=== PATIENT | male | born 1935 | race Caucasian/White ===

== ENCOUNTER 2020-06-22 14:30 | Inpatient (IN) ==
[2020-06-22 16:29] LABS: ABS Basophils 0.1 10^3/ul (0-0.2); ABS Eosinophils 0.1 10^3/ul (0-0.6); ABS Lymphocytes 0.7 10^3/ul (1.0-4.8); ABS Monocytes 0.4 10^3/ul (0-0.8); ABS Neutrophils 4.3 10^3/ul (1.5-7.7); Eosinophil % 1.2 %; Hematocrit 33 % (42-52); Hemoglobin 10.6 g/dL (14.0-18.0); Lymphocyte % 11.8 %; Mean Corpuscular HGB Conc 33 g/dL (31-36); Mean Corpuscular Hemoglobin 30 pg (27-31); Mean Corpuscular Volume 91 fL (80-94); Platelet Count 229 10^3/uL (150-450); Red Blood Count 3.58 10^6 /uL (4.18-5.48); Red Cell Distribution Width 19 % (10-15); White Blood Count 5.5 10^3/uL (3.5-10.8)
[2020-06-22] MEDS ORDERED: Furosemide 40 mg/4 ml IV VIAL IV SLOW PU ONE ×2 (16:49→18:10)
[2020-06-22 17:01] LABS: Troponin I 0.16 ng/mL (<0.03)
[2020-06-22 17:14] LABS: ALT 10 U/L (7-52); AST 11 U/L (13-39); Albumin 4.1 g/dL (3.2-5.2); Albumin/Globulin Ratio 1.7 (1-3); Alkaline Phosphatase 49 U/L (34-104); Anion Gap 10 mmol/L (2-11); BUN/Creatinine Ratio 12.9 (8-20); Blood Urea Nitrogen 54 mg/dL (6-24); CO2 Carbon Dioxide 24 mmol/L (22-32); Calcium 10.4 mg/dL (8.6-10.3); Chloride 108 mmol/L (101-111); EGFR African American 16.4 (>60); EGFR Non-African American 13.5 (>60); Globulin 2.4 g/dL (2-4); Glucose 135 mg/dL (70-100); Magnesium 2.3 mg/dL (1.9-2.7); Potassium 4.1 mmol/L (3.5-5.0); Sodium 142 mmol/L (135-145); Total Protein 6.5 g/dL (6.4-8.9)
[2020-06-22 17:35] LABS: Urine Appearance Cloudy; Urine Bilirubin Negative (Negative); Urine Blood Negative (Negative); Urine Color Yellow; Urine Glucose 1+(50 mg/dL) (Negative); Urine Ketones Negative (Negative); Urine Nitrite Negative (Negative); Urine Protein 2+(100 mg/dL) (Negative); Urine Specific Gravity 1.014 (1.010-1.030); Urine Urobilinogen Negative (Negative)
[2020-06-22 17:47] LABS: Urine Bacteria Absent (Absent); Urine Red Blood Cell Absent (Absent); Urine Squamous Epithelial Cell Present (Absent); Urine White Blood Cell Trace(0-5/hpf) (Absent)
[2020-06-22] MEDS ORDERED: Al Hydrox/Mg Hydrox/Simet LIQ 30 ML UDC PO PRN (18:01)
[2020-06-22 18:07] LABS: TSH Ultra Thyroid Stim Horm 6.47 mcIU/mL (0.34-5.60)
[2020-06-22] MEDS ORDERED: Dextrose 50% Syringe 50 ml 25 GM/50 ML SYRINGE IV PUSH PRN (18:15)
[2020-06-22 18:23] LABS: Activated Partial Thrombo Time 42.8 seconds (26.0-38.0); INR 3.64 (0.82-1.09)
[2020-06-22] MEDS ORDERED: Phytonadione Oral Solution 5 MG/25 ML UDC PO ONE (19:58)
[2020-06-22 20:33] LABS: Troponin I 0.16 ng/mL (<0.03)
[2020-06-23 00:36] LABS: BUN/Creatinine Ratio 12.3 (8-20); EGFR African American 15.6 (>60); EGFR Non-African American 12.9 (>60); Magnesium 2.2 mg/dL (1.9-2.7); Potassium 3.8 mmol/L (3.5-5.0)
[2020-06-23 00:43] LABS: INR 4.46 (0.82-1.09)
[2020-06-23 00:57] LABS: Urine Appearance Turbid; Urine Bilirubin Negative (Negative); Urine Blood 3+ (Negative); Urine Color Yellow; Urine Glucose 1+(50 mg/dL) (Negative); Urine Ketones Trace (Negative); Urine Nitrite Negative (Negative); Urine Protein 3+(>=500 mg/dL) (Negative); Urine Specific Gravity 1.013 (1.010-1.030); Urine Urobilinogen Negative (Negative)
[2020-06-23 00:58] LABS: Hematocrit 29 % (42-52); Hemoglobin 9.5 g/dL (14.0-18.0)
[2020-06-23] MEDS ORDERED: Furosemide 100 mg/10 ml IV 100 MG in NS 0.9% 100 ml BAG 90 ML IV SCH (01:00)
[2020-06-23 01:07] LABS: Urine Bacteria Absent (Absent); Urine Red Blood Cell Absent (Absent); Urine White Blood Cell Absent (Absent)
[2020-06-23] MEDS ORDERED: Phytonadione Oral Solution 5 MG/25 ML UDC PO ONE (01:10)
[2020-06-23] MEDS: Nystatin TOP POWDER 15 GM BTL TOPICAL SCH ×3 (03:13→21:08)
[2020-06-23 04:31] LABS: ABS Basophils 0.1 10^3/ul (0-0.2); ABS Eosinophils 0.1 10^3/ul (0-0.6); ABS Lymphocytes 0.6 10^3/ul (1.0-4.8); ABS Monocytes 0.5 10^3/ul (0-0.8); ABS Neutrophils 4.6 10^3/ul (1.5-7.7); Eosinophil % 1.6 %; Hematocrit 27 % (42-52); Hemoglobin 8.7 g/dL (14.0-18.0); Lymphocyte % 9.9 %; Mean Corpuscular HGB Conc 32 g/dL (31-36); Mean Corpuscular Hemoglobin 29 pg (27-31); Mean Corpuscular Volume 90 fL (80-94); Mean Platelet Volume 8.2 fL (7.4-10.4); Platelet Count 201 10^3/uL (150-450); Red Blood Count 2.99 10^6 /uL (4.18-5.48); Red Cell Distribution Width 19 % (10-15); White Blood Count 5.8 10^3/uL (3.5-10.8)
[2020-06-23 04:41] LABS: INR 4.68 (0.82-1.09)
[2020-06-23 04:44] LABS: Anion Gap 10 mmol/L (2-11); BUN/Creatinine Ratio 12.6 (8-20); Blood Urea Nitrogen 54 mg/dL (6-24); CO2 Carbon Dioxide 23 mmol/L (22-32); Chloride 110 mmol/L (101-111); EGFR African American 15.9 (>60); EGFR Non-African American 13.2 (>60); Glucose 98 mg/dL (70-100); Magnesium 2.1 mg/dL (1.9-2.7); Potassium 3.7 mmol/L (3.5-5.0); Sodium 143 mmol/L (135-145)
[2020-06-23] MEDS ORDERED: KCL 20 MEQ/100 ML IVPREMIX 20 MEQ/100 ML BAG IV ONE (04:47)
[2020-06-23] MEDS: Furosemide 100 mg/10 ml IV 100 MG in NS 0.9% 100 ml BAG 90 ML IV SCH ×2 (07:04→11:36)
[2020-06-23] MEDS ORDERED: Phytonadione IV (Adult) 5 MG in NS 0.9% 50 ML 50 ML IV ONE (07:35)
[2020-06-23 08:16] LABS: Troponin I 0.19 ng/mL (<0.03)
[2020-06-23 08:31] LABS: Troponin I 0.17 ng/mL (<0.03)
[2020-06-23] MEDS: PARICALCITOL 1 MCG PO SCH (10:07)
[2020-06-23] MEDS ORDERED: Prothrombin Complex Conc. DOSE = Units Factor IX (nine) IV SLOW PU ONE (12:00)
[2020-06-23] MEDS ORDERED: Lidocaine 2% JELLY 6 ML TOPICAL ONE (12:32)
[2020-06-23 13:25] LABS: Hepatitis B Surface Antigen Nonreactive (Nonreactive)
[2020-06-23 13:30] LABS: Hepatitis A Ab IgM Negative (Negative)
[2020-06-23 13:31] LABS: Hepatitis B Core IgM Nonreactive (Nonreactive)
[2020-06-23] MEDS ORDERED: Norepinephrine 16MCG/ML IVPRE 4,000 MCG/250 ML BAG IV ONE (13:32)
[2020-06-23 13:43] LABS: Hepatitis C Antibody Negative (Negative)
[2020-06-23] MEDS ORDERED: fentaNYL 100 mcg/2 ml 50 MCG/ML VIAL ONE (13:48)
[2020-06-23] MEDS ORDERED: Naloxone 0.4 mg VIAL 0.4 mg/ml 1 ml VIAL ONE (13:48)
[2020-06-23] MEDS ORDERED: Heparin 1,000 UNIT/ML 10 ml (10,000 UNITS) CATHLAB/DIALYSIS DIALYSIS ONE (15:00)
[2020-06-23 16:45] LABS: Hepatitis B Surface Antigen Nonreactive (Nonreactive)
[2020-06-23 17:03] LABS: Hepatitis B Surface Ab Not Immune (Immune); Hepatitis C Antibody Negative (Negative)
[2020-06-23] MEDS ORDERED: Norepinephrine 16MCG/ML IVPRE 4,000 MCG/250 ML BAG IV SCH (18:00)
[2020-06-24 03:46] LABS: INR 1.02 (0.82-1.09)
[2020-06-24 04:27] LABS: ABS Basophils 0.1 10^3/ul (0-0.2); ABS Eosinophils 0.1 10^3/ul (0-0.6); ABS Lymphocytes 0.6 10^3/ul (1.0-4.8); ABS Monocytes 0.6 10^3/ul (0-0.8); Hematocrit 25 % (42-52); Hemoglobin 8.1 g/dL (14.0-18.0); Lymphocyte % 8.2 %; Mean Corpuscular HGB Conc 32 g/dL (31-36); Mean Corpuscular Hemoglobin 29 pg (27-31); Mean Corpuscular Volume 91 fL (80-94); Mean Platelet Volume 9.1 fL (7.4-10.4); Nucleated Red Blood Cells % 0.1; Platelet Count 196 10^3/uL (150-450); Red Blood Count 2.77 10^6 /uL (4.18-5.48); Red Cell Distribution Width 19 % (10-15); White Blood Count 7.4 10^3/uL (3.5-10.8)
[2020-06-24 04:30] LABS: Calcium 9.5 mg/dL (8.6-10.3); Potassium 3.6 mmol/L (3.5-5.0)
[2020-06-24 04:36] LABS: BUN/Creatinine Ratio 11.9 (8-20); EGFR African American 19.5 (>60); EGFR Non-African American 16.1 (>60)
[2020-06-24] MEDS: PARICALCITOL 1 MCG PO SCH (08:39)
[2020-06-24] MEDS ORDERED: Influenza VAC *QUAD* 2020-21* 0.5 ML SYRINGE IM ONE (09:00)
[2020-06-24] MEDS ORDERED: Potassium Chlor 20 meq TAB.ER PO ONE (09:00)
[2020-06-24] MEDS: Nystatin TOP POWDER 15 GM BTL TOPICAL SCH (10:06)
[2020-06-24] MEDS ORDERED: Heparin 1,000 UNIT/ML 10 ml (10,000 UNITS) CATHLAB/DIALYSIS DIALYSIS ONE (15:30)
[2020-06-24 19:41] VITALS: BP 99/59
== END 2020-06-24 19:35 | disposition short-term general hospital (02) | DRG 291 ==
LOC: ED 14:30 → MEDTELE 18:01 → ICU 19:40
PROVIDERS: ADMIT Internal Medicine; ATTEND Internal Medicine

== ENCOUNTER 2020-07-08 13:31 | Inpatient (IN) ==
[2020-07-08] MEDS ORDERED: Senna TAB 8.6 mg TAB PO PRN (15:30)
[2020-07-08] MEDS ORDERED: Magnesium Hydroxide LIQ 30 ML UDC PO PRN (15:30)
[2020-07-08] MEDS ORDERED: Dextrose 50% Syringe 50 ml 25 GM/50 ML SYRINGE IV PUSH PRN (15:48)
[2020-07-08] MEDS: Warfarin DAILY REMINDER **NOTE FOLLOW UP SCH (17:44)
[2020-07-08] MEDS: Amoxicillin/Clavul 875/125 TAB (Augmentin 875 tab) PO SCH (20:24)
[2020-07-09 05:44] LABS: INR 1.07 (0.82-1.09)
[2020-07-09] MEDS ORDERED: PARICALCITOL 1 MCG PO SCH (09:00)
[2020-07-09] MEDS: Amoxicillin/Clavul 875/125 TAB (Augmentin 875 tab) PO SCH ×2 (09:11→20:04)
[2020-07-09] MEDS: SITAGLIPTIN 25 MG PO SCH (09:12)
[2020-07-09] MEDS: CMCS:OMEGA-3 FATTY ACID 1000 mg(NF) PO SCH (09:12)
[2020-07-09] MEDS: Trospium 20 mg TAB (NF) PO SCH (10:33)
[2020-07-09] MEDS: Warfarin DAILY REMINDER **NOTE FOLLOW UP SCH (18:35)
[2020-07-10 07:51] LABS: ABS Basophils 0.1 10^3/ul (0-0.2); ABS Eosinophils 0.4 10^3/ul (0-0.6); ABS Lymphocytes 0.7 10^3/ul (1.0-4.8); ABS Monocytes 0.5 10^3/ul (0-0.8); ABS Neutrophils 6.2 10^3/ul (1.5-7.7); Eosinophil % 4.8 %; Hematocrit 27 % (42-52); Lymphocyte % 8.7 %; Mean Corpuscular HGB Conc 34 g/dL (31-36); Mean Corpuscular Hemoglobin 31 pg (27-31); Mean Corpuscular Volume 91 fL (80-94); Mean Platelet Volume 7.7 fL (7.4-10.4); Platelet Count 243 10^3/uL (150-450); Red Blood Count 2.93 10^6 /uL (4.18-5.48); Red Cell Distribution Width 18 % (10-15); White Blood Count 7.8 10^3/uL (3.5-10.8)
[2020-07-10 08:11] LABS: Albumin 2.9 g/dL (3.2-5.2); Albumin/Globulin Ratio 1.1 (1-3); BUN/Creatinine Ratio 14.8 (8-20); EGFR African American 19.7 (>60); EGFR Non-African American 16.3 (>60); Globulin 2.7 g/dL (2-4); INR 1.03 (0.82-1.09); Potassium 4.4 mmol/L (3.5-5.0); Total Bilirubin 0.5 mg/dL (0.2-1.0); Total Protein 5.6 g/dL (6.4-8.9)
[2020-07-10] MEDS: Amoxicillin/Clavul 875/125 TAB (Augmentin 875 tab) PO SCH (11:09)
[2020-07-10] MEDS: Aspirin EC 81 mg TAB.EC (enteric coated) PO SCH (11:10)
[2020-07-10] MEDS: PARICALCITOL 2 MCG PO SCH (11:11)
[2020-07-10] MEDS: SITAGLIPTIN 25 MG PO SCH (11:11)
[2020-07-10] MEDS: CMCS:OMEGA-3 FATTY ACID 1000 mg(NF) PO SCH (11:11)
[2020-07-10] MEDS: Trospium 20 mg TAB (NF) PO SCH (11:11)
[2020-07-10] MEDS: Warfarin DAILY REMINDER **NOTE FOLLOW UP SCH (17:54)
[2020-07-10] MEDS: Amoxicillin/Clavul 500/125 TAB (Augmentin 500 mg tab) PO SCH (20:09)
[2020-07-11 08:13] LABS: INR 1.01 (0.82-1.09)
[2020-07-11] MEDS: Amoxicillin/Clavul 500/125 TAB (Augmentin 500 mg tab) PO SCH ×2 (09:32→21:05)
[2020-07-11] MEDS: Aspirin EC 81 mg TAB.EC (enteric coated) PO SCH (09:32)
[2020-07-11] MEDS: Sodium Bicarb 650 mg (ANTACID) TAB PO SCH ×2 (09:32→18:28)
[2020-07-11] MEDS: PARICALCITOL 2 MCG PO SCH (09:33)
[2020-07-11] MEDS: SITAGLIPTIN 25 MG PO SCH (09:33)
[2020-07-11] MEDS: CMCS:OMEGA-3 FATTY ACID 1000 mg(NF) PO SCH (09:33)
[2020-07-11] MEDS: Warfarin DAILY REMINDER **NOTE FOLLOW UP SCH (18:28)
[2020-07-12] MEDS ORDERED: Lidocaine 2% JELLY 6 ML TOPICAL PRN (09:51)
[2020-07-12] MEDS: Amoxicillin/Clavul 500/125 TAB (Augmentin 500 mg tab) PO SCH (10:12)
[2020-07-12] MEDS: Sodium Bicarb 650 mg (ANTACID) TAB PO SCH ×2 (10:12→17:32)
[2020-07-12] MEDS: Aspirin EC 81 mg TAB.EC (enteric coated) PO SCH (10:12)
[2020-07-12] MEDS: PARICALCITOL 2 MCG PO SCH (10:13)
[2020-07-12] MEDS: CMCS:OMEGA-3 FATTY ACID 1000 mg(NF) PO SCH (10:13)
[2020-07-12] MEDS: SITAGLIPTIN 25 MG PO SCH (10:13)
[2020-07-12] MEDS: Warfarin DAILY REMINDER **NOTE FOLLOW UP SCH (17:31)
[2020-07-13 05:51] LABS: Hematocrit 28 % (42-52); Hemoglobin 9.2 g/dL (14.0-18.0); Mean Corpuscular HGB Conc 33 g/dL (31-36); Mean Corpuscular Hemoglobin 31 pg (27-31); Mean Corpuscular Volume 94 fL (80-94); Mean Platelet Volume 7.8 fL (7.4-10.4); Platelet Count 266 10^3/uL (150-450); Red Blood Count 2.97 10^6 /uL (4.18-5.48); Red Cell Distribution Width 17 % (10-15); White Blood Count 7.9 10^3/uL (3.5-10.8)
[2020-07-13 06:00] LABS: INR 1.05 (0.82-1.09)
[2020-07-13 06:10] LABS: Albumin 3.2 g/dL (3.2-5.2); Albumin/Globulin Ratio 1.1 (1-3); BUN/Creatinine Ratio 14.2 (8-20); Calcium 10.2 mg/dL (8.6-10.3); EGFR African American 19.6 (>60); EGFR Non-African American 16.2 (>60); Globulin 2.9 g/dL (2-4); Phosphorus 4.2 mg/dL (2.5-5.0); Potassium 4.7 mmol/L (3.5-5.0); Total Bilirubin 0.5 mg/dL (0.2-1.0); Total Protein 6.1 g/dL (6.4-8.9)
[2020-07-13 06:33] LABS: % Iron Saturation 9 % (15-55); Iron 22 ug/dL (50-212); Total Iron Binding Capacity 253 mcg/dL (250-450); Transferrin 181 mg/dL (203-362); Unsaturated Iron Binding < 238 ug/dL
[2020-07-13 06:53] LABS: Ferritin 199.8 ng/mL (24-336)
[2020-07-13] MEDS: Aspirin EC 81 mg TAB.EC (enteric coated) PO SCH (08:32)
[2020-07-13] MEDS: CMCS:OMEGA-3 FATTY ACID 1000 mg(NF) PO SCH (08:35)
[2020-07-13] MEDS: PARICALCITOL 2 MCG PO SCH (08:35)
[2020-07-13] MEDS: SITAGLIPTIN 25 MG PO SCH (08:35)
[2020-07-13] MEDS: Sodium Bicarb 650 mg (ANTACID) TAB PO SCH ×2 (08:37→17:15)
[2020-07-13] MEDS: Warfarin DAILY REMINDER **NOTE FOLLOW UP SCH (17:16)
[2020-07-14] MEDS: Aspirin EC 81 mg TAB.EC (enteric coated) PO SCH (08:54)
[2020-07-14] MEDS: Sodium Bicarb 650 mg (ANTACID) TAB PO SCH ×2 (08:54→17:31)
[2020-07-14] MEDS: CMCS:OMEGA-3 FATTY ACID 1000 mg(NF) PO SCH (08:54)
[2020-07-14] MEDS: PARICALCITOL 2 MCG PO SCH (08:54)
[2020-07-14] MEDS: SITAGLIPTIN 25 MG PO SCH (08:55)
[2020-07-14] MEDS ORDERED: Lidocaine 2% JELLY 5 ML TUBE LIDO2GEL7 TOPICAL PRN (10:45)
[2020-07-14] MEDS: Warfarin DAILY REMINDER **NOTE FOLLOW UP SCH (17:46)
[2020-07-15] MEDS: Aspirin EC 81 mg TAB.EC (enteric coated) PO SCH (08:41)
[2020-07-15] MEDS: Sodium Bicarb 650 mg (ANTACID) TAB PO SCH ×2 (08:41→16:33)
[2020-07-15] MEDS: CMCS:OMEGA-3 FATTY ACID 1000 mg(NF) PO SCH (08:42)
[2020-07-15] MEDS: PARICALCITOL 2 MCG PO SCH (08:42)
[2020-07-15] MEDS: SITAGLIPTIN 25 MG PO SCH (08:44)
[2020-07-15 08:50] LABS: INR 1.12 (0.82-1.09)
[2020-07-15 09:02] LABS: BUN/Creatinine Ratio 12.9 (8-20); Calcium 10.3 mg/dL (8.6-10.3); EGFR African American 18.4 (>60); EGFR Non-African American 15.2 (>60); Potassium 4.8 mmol/L (3.5-5.0)
[2020-07-15] MEDS: Iron Sucrose 200 MG in NS 0.9% 100 ml BAG 100 ML IVPB SCH (11:21)
[2020-07-15] MEDS: Warfarin DAILY REMINDER **NOTE FOLLOW UP SCH (18:03)
[2020-07-16] MEDS: Sodium Bicarb 650 mg (ANTACID) TAB PO SCH ×2 (07:52→17:08)
[2020-07-16] MEDS ORDERED: Iron Sucrose 200 MG in NS 0.9% 100 ml BAG 100 ML IVPB SCH (09:00)
[2020-07-16] MEDS: PARICALCITOL 2 MCG PO SCH (09:37)
[2020-07-16] MEDS: Aspirin EC 81 mg TAB.EC (enteric coated) PO SCH (09:37)
[2020-07-16] MEDS: CMCS:OMEGA-3 FATTY ACID 1000 mg(NF) PO SCH (09:38)
[2020-07-16] MEDS: SITAGLIPTIN 25 MG PO SCH (09:38)
[2020-07-16] MEDS: Warfarin DAILY REMINDER **NOTE FOLLOW UP SCH (17:41)
[2020-07-16] MEDS: Lidocaine 2% JELLY 5 ML TUBE LIDO2GEL7 TOPICAL SCH (21:24)
[2020-07-17 05:40] LABS: INR 1.21 (0.82-1.09)
[2020-07-17 06:29] LABS: ABS Basophils 0.1 10^3/ul (0-0.2); ABS Eosinophils 0.1 10^3/ul (0-0.6); ABS Lymphocytes 0.5 10^3/ul (1.0-4.8); ABS Monocytes 0.6 10^3/ul (0-0.8); ABS Neutrophils 5.1 10^3/ul (1.5-7.7); Eosinophil % 1.8 %; Hematocrit 25 % (42-52); Hemoglobin 8.1 g/dL (14.0-18.0); Lymphocyte % 7.5 %; Mean Corpuscular HGB Conc 33 g/dL (31-36); Mean Corpuscular Hemoglobin 30 pg (27-31); Mean Corpuscular Volume 91 fL (80-94); Mean Platelet Volume 8.2 fL (7.4-10.4); Platelet Count 219 10^3/uL (150-450); Red Blood Count 2.69 10^6 /uL (4.18-5.48); Red Cell Distribution Width 17 % (10-15); White Blood Count 6.3 10^3/uL (3.5-10.8)
[2020-07-17] MEDS: Aspirin EC 81 mg TAB.EC (enteric coated) PO SCH (09:12)
[2020-07-17] MEDS: Sodium Bicarb 650 mg (ANTACID) TAB PO SCH ×2 (09:12→17:26)
[2020-07-17] MEDS: PARICALCITOL 2 MCG PO SCH (09:14)
[2020-07-17] MEDS: Lidocaine 2% JELLY 5 ML TUBE LIDO2GEL7 TOPICAL SCH ×2 (09:14→21:30)
[2020-07-17] MEDS: CMCS:OMEGA-3 FATTY ACID 1000 mg(NF) PO SCH (09:15)
[2020-07-17] MEDS: SITAGLIPTIN 25 MG PO SCH (09:15)
[2020-07-17] MEDS: Iron Sucrose 200 MG in NS 0.9% 100 ml BAG 100 ML IVPB SCH (11:42)
[2020-07-17 15:48] LABS: Albumin 3.2 g/dL (3.2-5.2); Albumin/Globulin Ratio 1.1 (1-3); BUN/Creatinine Ratio 12.7 (8-20); Calcium 9.9 mg/dL (8.6-10.3); EGFR African American 18.4 (>60); EGFR Non-African American 15.2 (>60); Potassium 4.6 mmol/L (3.5-5.0); Total Bilirubin 0.4 mg/dL (0.2-1.0); Total Protein 6.2 g/dL (6.4-8.9)
[2020-07-17] MEDS: Warfarin DAILY REMINDER **NOTE FOLLOW UP SCH (17:30)
[2020-07-17 19:16] LABS: Albumin 2.9 g/dL (3.2-5.2); Albumin/Globulin Ratio 1.1 (1-3); BUN/Creatinine Ratio 12.6 (8-20); Calcium 9.6 mg/dL (8.6-10.3); EGFR African American 18.7 (>60); EGFR Non-African American 15.5 (>60); Globulin 2.7 g/dL (2-4); Total Bilirubin 0.4 mg/dL (0.2-1.0); Total Protein 5.6 g/dL (6.4-8.9)
[2020-07-18] MEDS: Aspirin EC 81 mg TAB.EC (enteric coated) PO SCH (08:10)
[2020-07-18] MEDS: CMCS:OMEGA-3 FATTY ACID 1000 mg(NF) PO SCH (08:11)
[2020-07-18] MEDS: SITAGLIPTIN 25 MG PO SCH (08:12)
[2020-07-18] MEDS: PARICALCITOL 2 MCG PO SCH (08:14)
[2020-07-18] MEDS: Sodium Bicarb 650 mg (ANTACID) TAB PO SCH ×2 (08:14→17:16)
[2020-07-18] MEDS: Lidocaine 2% JELLY 5 ML TUBE LIDO2GEL7 TOPICAL SCH ×2 (08:14→21:19)
[2020-07-18] MEDS: Warfarin DAILY REMINDER **NOTE FOLLOW UP SCH (17:16)
[2020-07-19] MEDS: Aspirin EC 81 mg TAB.EC (enteric coated) PO SCH (08:37)
[2020-07-19] MEDS: CMCS:OMEGA-3 FATTY ACID 1000 mg(NF) PO SCH (08:38)
[2020-07-19] MEDS: SITAGLIPTIN 25 MG PO SCH (08:38)
[2020-07-19] MEDS: PARICALCITOL 2 MCG PO SCH (08:38)
[2020-07-19 08:39] LABS: INR 1.4 (0.82-1.09)
[2020-07-19] MEDS: Iron Sucrose 200 MG in NS 0.9% 100 ml BAG 100 ML IVPB SCH (08:52)
[2020-07-19] MEDS: Lidocaine 2% JELLY 5 ML TUBE LIDO2GEL7 TOPICAL SCH ×2 (09:38→21:07)
[2020-07-19] MEDS: Sodium Bicarb 650 mg (ANTACID) TAB PO SCH ×2 (09:38→16:45)
[2020-07-19] MEDS: Warfarin DAILY REMINDER **NOTE FOLLOW UP SCH (16:46)
[2020-07-20 07:48] LABS: INR 1.53 (0.82-1.09)
[2020-07-20] MEDS: Aspirin EC 81 mg TAB.EC (enteric coated) PO SCH (09:26)
[2020-07-20] MEDS: Sodium Bicarb 650 mg (ANTACID) TAB PO SCH ×2 (09:26→16:03)
[2020-07-20] MEDS: PARICALCITOL 2 MCG PO SCH (09:27)
[2020-07-20] MEDS: SITAGLIPTIN 25 MG PO SCH (09:27)
[2020-07-20] MEDS: CMCS:OMEGA-3 FATTY ACID 1000 mg(NF) PO SCH (09:27)
[2020-07-20] MEDS: Lidocaine 2% JELLY 5 ML TUBE LIDO2GEL7 TOPICAL SCH ×2 (09:28→20:32)
[2020-07-20] MEDS: Warfarin DAILY REMINDER **NOTE FOLLOW UP SCH (17:16)
[2020-07-21 04:25] LABS: ABS Basophils 0.1 10^3/ul (0-0.2); ABS Eosinophils 0.3 10^3/ul (0-0.6); ABS Lymphocytes 0.4 10^3/ul (1.0-4.8); ABS Monocytes 0.4 10^3/ul (0-0.8); ABS Neutrophils 3.5 10^3/ul (1.5-7.7); Eosinophil % 6.7 %; Hematocrit 25 % (42-52); Hemoglobin 8.1 g/dL (14.0-18.0); Mean Corpuscular HGB Conc 33 g/dL (31-36); Mean Corpuscular Hemoglobin 30 pg (27-31); Mean Corpuscular Volume 90 fL (80-94); Mean Platelet Volume 7.2 fL (7.4-10.4); Nucleated Red Blood Cells % 0.1; Platelet Count 210 10^3/uL (150-450); Red Blood Count 2.76 10^6 /uL (4.18-5.48); Red Cell Distribution Width 17 % (10-15); White Blood Count 4.6 10^3/uL (3.5-10.8)
[2020-07-21 04:38] LABS: Albumin 2.9 g/dL (3.2-5.2); Calcium 9.6 mg/dL (8.6-10.3); Potassium 4.4 mmol/L (3.5-5.0); Total Bilirubin 0.4 mg/dL (0.2-1.0)
[2020-07-21 04:39] LABS: Calcium 9.2 mg/dL (8.6-10.3); Magnesium 1.9 mg/dL (1.9-2.7); Potassium 4.4 mmol/L (3.5-5.0)
[2020-07-21 04:44] LABS: Albumin/Globulin Ratio 1.1 (1-3); BUN/Creatinine Ratio 11.1 (8-20); BUN/Creatinine Ratio 11.3 (8-20); EGFR African American 17.3 (>60); EGFR Non-African American 14.3 (>60); Globulin 2.6 g/dL (2-4); Phosphorus 4.4 mg/dL (2.5-5.0); Total Protein 5.5 g/dL (6.4-8.9)
[2020-07-21] MEDS: Sodium Bicarb 650 mg (ANTACID) TAB PO SCH ×2 (08:30→17:15)
[2020-07-21] MEDS: CMCS:OMEGA-3 FATTY ACID 1000 mg(NF) PO SCH (08:30)
[2020-07-21] MEDS: Aspirin EC 81 mg TAB.EC (enteric coated) PO SCH (08:30)
[2020-07-21] MEDS: PARICALCITOL 2 MCG PO SCH (08:31)
[2020-07-21] MEDS: SITAGLIPTIN 25 MG PO SCH (08:31)
[2020-07-21] MEDS: Lidocaine 2% JELLY 5 ML TUBE LIDO2GEL7 TOPICAL SCH ×2 (08:31→20:30)
[2020-07-21] MEDS: Warfarin DAILY REMINDER **NOTE FOLLOW UP SCH (17:24)
[2020-07-21] MEDS: Iron Sucrose 200 MG in NS 0.9% 100 ml BAG 100 ML IVPB SCH (22:33)
[2020-07-22 05:12] VITALS: BP 106/54
[2020-07-22] MEDS: Lidocaine 2% JELLY 5 ML TUBE LIDO2GEL7 TOPICAL SCH (07:40)
[2020-07-22] MEDS: CMCS:OMEGA-3 FATTY ACID 1000 mg(NF) PO SCH (07:40)
[2020-07-22] MEDS: Sodium Bicarb 650 mg (ANTACID) TAB PO SCH (07:40)
[2020-07-22] MEDS: Aspirin EC 81 mg TAB.EC (enteric coated) PO SCH (07:40)
[2020-07-22] MEDS: PARICALCITOL 2 MCG PO SCH (07:40)
[2020-07-22] MEDS: SITAGLIPTIN 25 MG PO SCH (07:41)
[2020-07-22 08:09] LABS: INR 2.16 (0.82-1.09)
[2020-07-22 10:49] LABS: Urine Appearance Turbid; Urine Bilirubin Negative (Negative); Urine Blood Negative (Negative); Urine Color Yellow; Urine Glucose Negative (Negative); Urine Ketones Negative (Negative); Urine Nitrite Negative (Negative); Urine Protein 3+(>=500 mg/dL) (Negative); Urine Specific Gravity 1.019 (1.010-1.030); Urine Urobilinogen Negative (Negative)
[2020-07-22 10:52] LABS: Urine Bacteria Absent (Absent); Urine Red Blood Cell 3+(>10/hpf) (Absent); Urine White Blood Cell 3+(>20/hpf) (Absent)
== END 2020-07-22 11:45 | disposition home health service (06) | DRG 949 ==
LOC: PMRU 15:13
PROVIDERS: ADMIT Physical Medicine & Rehabilitation; ATTEND Physical Medicine & Rehabilitation